=== PATIENT | male | born 1965 | race Caucasian/White ===

== ENCOUNTER 2023-12-04 07:21 | Day surgery (SDC) | payer OTHER ==
[~2023-12-04] VITALS: Ht 182.9 cm; Wt 86.2 kg
[~2023-12-04 07:21] MED LIST: AMITRIPTYLINE H10 MG PO; DICYCLOMINE HYD10 MG PO; LYRICA50 MG PO; METHYLPRED4 MG PO; OMEPRAZOLE DR40 MG PO; VITAMIN B2 PO; VITAMIN D-32000 UNI1 PO
[2023-12-04 10:28] VITALS: BP 107/81
== END 2023-12-04 09:25 | disposition home or self-care (01) ==
LOC: ORM 07:21
PROVIDERS: ATTEND Student in an Organized Health Care Education/Training Program
DX: G89.4 Chronic pain syndrome (principal); M53.3 Sacrococcygeal disorders, not elsewhere classified; M54.16 Radiculopathy, lumbar region; M54.2 Cervicalgia
CPT/HCPCS: Q9967

== ENCOUNTER 2024-05-13 07:40 | Day surgery (SDC) | payer OTHER ==
[~2024-05-13] VITALS: Ht 182.9 cm; Wt 82.6 kg
[~2024-05-13 07:40] MED LIST changes: +AMPHETAMINE PO; +DYANAVEL PO; +FLUOXETINE40 MG PO; +MELOXICAM15 MG PO; +PROZAC20 MG PO; +QUETIAPINE FUMA25 MG PO; +SEROQUEL50 MG PO
[2024-05-13] MEDS ORDERED: SODIUM CHLORIDE 0.9% 10 ML SYR ONE (07:46)
[2024-05-13] MEDS ORDERED: LIDOCAINE HCL 1% (10MG/ML) 100 MG/10 ML MDV ONE (08:41)
[2024-05-13] MEDS ORDERED: BUPIVACAINE HCL PF 0.5 % 50 MG/10 ML SDV ONE (08:41)
[2024-05-13] MEDS ORDERED: MIDAZOLAM HCL 2 MG/2 ML VIAL ONE (08:43)
[2024-05-13 09:17] VITALS: BP 125/87
== END 2024-05-13 09:26 | disposition home or self-care (01) ==
LOC: ORM 07:40
PROVIDERS: ATTEND Student in an Organized Health Care Education/Training Program
DX: M47.812 Spondylosis without myelopathy or radiculopathy, cervical region (principal); G89.4 Chronic pain syndrome

== ENCOUNTER 2024-05-20 14:38 | Emergency (ER) | payer OTHER ==
[~2024-05-20] VITALS: Ht 182.9 cm; Wt 83.4 kg
[2024-05-20] MEDS ORDERED: ELIQUIS STARTER5 MG PO (15:13)
[2024-05-20 15:16] VITALS: BP 122/86
[2024-05-20 15:31] VITALS: BP 124/83
[2024-05-20 15:38] LABS: BASO% 0.3 % (0-3); EOS% 1.2 % (0-8); HEMATOCRIT 42.2 % (39.0-50.0); HEMOGLOBIN 13.5 g/dl (14.0-18.0); IMMATURE GRANULOCYTES 0.3 % (0.0-5.0); LYMPH% 29.7 % (15-41); MEAN CELL VOLUME 96.1 fL CALC (80.0-100.0); MEAN CORPUSCULAR HGB 30.8 pG CALC (26.0-32.0); MONO% 8.6 % (2-13); NEUT# 7.94 thou/uL (1.82-7.42); NEUT% 59.9 % (42-76); RED BLOOD COUNT 4.39 mill/uL (4.70-6.10); RED CELL DISTRI WIDTH 13.3 % (11.5-15.5)
[2024-05-20 15:45] VITALS: BP 132/86
[2024-05-20 15:57] LABS: ALBUMIN 4.2 g/dL (3.2-5.0); BILIRUBIN, TOTAL 0.3 mg/dL (0.2-1.3); CREATININE 0.9 mg/dL (0.7-1.3); POTASSIUM 4.8 mmol/l (3.5-5.1); TOTAL PROTEIN 7.2 g/dL (6.3-8.2)
[2024-05-20 16:00] VITALS: BP 131/79
[2024-05-20 16:09] VITALS: BP 131/79
== END 2024-05-20 16:17 | disposition home or self-care (01) ==
LOC: ED 14:38
PROVIDERS: Family Medicine
DX: I82.412 Acute embolism and thrombosis of left femoral vein (principal)